=== PATIENT | male | born 1985 | race Caucasian/White ===

== ENCOUNTER 2019-05-11 11:38 | Emergency (ER) | payer SELFPAY ==
[~2019-05-11] VITALS: Ht 188 cm; Wt 137.9 kg
[2019-05-11 11:59] VITALS: BP 150/94; Ht 188 cm; Wt 137.9 kg
[2019-05-12] MEDS ORDERED: CIPRO500 MG PO (12:41)
[2019-05-12] MEDS ORDERED: ZOF4 PO (12:42)
[2019-05-12] MEDS ORDERED: LOMOTIL1 TAB PO (12:42)
[2019-05-12] MEDS ORDERED: LOSARTAN (12:46)
== END 2019-05-11 13:47 | disposition home or self-care (01) ==
LOC: ED 11:38
DX: R10.84 Generalized abdominal pain (principal); R19.7 Diarrhea, unspecified; R11.2 Nausea with vomiting, unspecified
CPT/HCPCS: Q0162

== ENCOUNTER 2019-05-12 09:56 | Inpatient (IN) | payer SELFPAY ==
[~2019-05-12] VITALS: Ht 188 cm; Wt 137.9 kg
[2019-05-12 10:04] VITALS: Ht 188 cm; Wt 137.9 kg
--- NOTE | 2019-05-12 10:19 | NUR ---
PT. IN ED WITH C/O N/V/D X3DAYS. DENIES ABD PAIN OR BLOOD IN EMESIS OR STOOL. DENIES FEVERS. REPORTS HE WAS SEEN YESTERDAY FOR SAME SYMPTOMS AND GIVEN LOMOTIL, ZOFRAN ODT, AND CIPRO. REPORTS SYMPTOMS HAVE CONTINUED. PT. AAOX4, TALKING AND RESPONDING APPROPRIATELY, BREATHING E/U. NAD. DR. STEINER AT BEDSIDE FOR MSE.
[2019-05-12 11:11] LABS: BASOPHIL % 0.2 % (0-2); PLATELET COUNT 274 x10^3mcL (130-400); RED CELL DISTRIBUTION WIDTH 14.2 % (11.5-14.5)
[2019-05-12 11:24] LABS: ALBUMIN 3.6 g/dL (3.4-5.0); BILIRUBIN TOTAL 0.5 mg/dL (0.20-1.00); CARBON DIOXIDE 28.8 mmol/L (21-32); CREATININE SERUM 1.7 mg/dL (0.7-1.3)
[2019-05-12 11:27] LABS: POTASSIUM SERUM 2.9 mmol/L (3.5-5.1); TOTAL PROTEIN, SERUM 9.1 g/dL (6.4-8.2)
--- NOTE | 2019-05-12 12:15 | NUR ---
PT. UP TO RESTROOM. AMBULATES WITH STEADY GAIT. REPROTS HE IS FEELING BETTER AFTER NS BOLUS
[2019-05-12] MEDS ORDERED: CIPRO500 MG PO (12:41)
[2019-05-12] MEDS ORDERED: LOMOTIL1 TAB PO (12:42)
[2019-05-12] MEDS ORDERED: ZOF4 PO (12:42)
[2019-05-12] MEDS ORDERED: LOSARTAN (12:46)
--- NOTE | 2019-05-12 12:46 | NUR ---
MED REC COMPLETED ABLE.
--- NOTE | 2019-05-12 12:57 | NUR ---
PT. LAYING ON GURNEY IN POSITION OF COMFORT. BREATHING E/U. NAD. CALL LIGHT IN REACH. WILL CONTINUE TO MONITOR.
--- NOTE | 2019-05-12 13:00 | NUR ---
PT. AMBULATED TO RESTROOM WITH STEADY GAIT. LEFT STOOL SAMPLE BUT NOT ENOUGH TO SEND TO LAB.
--- NOTE | 2019-05-12 13:04 | NUR ---
REPORT GIVEN TO ROSHNI BELLO FOR FURTHER CARE OF PATIENT. ALL QUESTIONS AND CONCERNS ADDRESSED.
--- NOTE | 2019-05-12 13:05 | NUR ---
PT. TAKEN TO CT VIA DAIN
[2019-05-12 13:32] LABS: CHOLESTEROL/HDL RATIO 8.5
--- NOTE | 2019-05-12 13:45 | NUR ---
PT. TRANSPORTED TO MED SURG DEPARTMENT VIA WHEELCHAIR. PT. AAOX4, TALKING AND RESPONDING APPROPRIATELY, BREATHING E/U. NAD. STABLE AT TIME OF TRANSFER.
--- NOTE | 2019-05-12 13:54 | NUR ---
RECEIVED FROM ER, VIA GUERNEY. AWAKE AND ALERT, ORIENTED TO NAME, PLACE, TIME AND SITUATION. SPEECH CLEAR AND APPROPRIATE. BREATHING EVEN AND UNLABORED ON ROOM AIR. WITH MG IV INFUSING TO RIGHT AC AT 25ML/HR. WITH K 20MEQ INFUSING AT 50ML/HR TO LEFT AC. BOTH IV SITES FLUSHED WELL, FREE FROM ERYTHEMA OR SWELLING. DENIES HAVING ABD PAIN, BUT STATED HAS HAD 6 WATERY STOOL TODAY. INSTRUCTED ON USE OF CALL LIGHT TO CALL FOR ASSISTANCE. PLACED WITHIN EASY REACH.
[2019-05-12 14:03] VITALS: BP 142/84
[2019-05-12 16:32] VITALS: BP 135/80
[2019-05-12 18:29] LABS: UA SPECIFIC GRAVITY 1.015 (1.005-1.035); microscopic required? YES; urine erythrocyte 2+ (NEGATIVE)
[2019-05-12 18:37] LABS: AMPHETAMINE QUAL UR NONE DETECTED (See below)
--- NOTE | 2019-05-12 18:50 | NUR ---
RESTING COMFORTABLY. NO VOMITING SINCE ARRIVING TO MED SURG FLOOR. 1 WATERY STOOL AND URINE SENT TO LAB FOR STUDIES. RECEIVED KRIDER X 2, MAGNESIUM RIDER X 1 AND FIRST DOSE FLAGYL IV. NS INFUSING 125 CC HOUR. NO C/O PAIN VSS. CALL LIGHT WITHIN REACH. POOR APPETITE WITH BRAT DIET.
--- NOTE | 2019-05-12 19:33 | NUR ---
RECEIVED PT FROM DAY SHIFT RN. PT AAOX4. DENIES SEGOVIA/DIZZINESS. BREATHING EVEN AND UNLABORED ON RA. NO SOB NOTED. MED SURG PT DENIES CHEST PAIN/PRESSURE. ABD SOFT/ROUND ACTIVE BOWEL SOUNDS. DENIES ABD PAIN/N/V. PER PT HE HAD WATERY STOOL X4 DURING THE DAY. PT AMBULATORY WITH BRP. IV LAC AND RAC. PATENT AND INFUSING WELL. NO SIGNS OF INFILTRATION. CALL BUTTON WITHIN REACH. SAFETY PRECAUTIONS IN PLACE. WILL CONTINUE TO MONITOR.
[2019-05-12 20:21] VITALS: BP 122/65
--- NOTE | 2019-05-13 01:30 | NUR ---
ROUNDS MADE. PT RESTING BREATHING EVEN AND UNLABORED ON RA WITH NO SOB NOTED. IV PATENT, INFUSING WELL. NO SIGNS OF DISTRESS. CALL BUTTON WITHIN REACH. SAFETY PRECAUTIONS IN PLACE. WILL MONITOR.
[2019-05-13 05:12] VITALS: BP 123/70
[2019-05-13 06:29] LABS: BASOPHIL % 0.2 % (0-2); PLATELET COUNT 227 x10^3mcL (130-400)
[2019-05-13 06:35] LABS: CARBON DIOXIDE 24.1 mmol/L (21-32); CHLORIDE SERUM 101 mmol/L (98-107); CREATININE SERUM 1.2 mg/dL (0.7-1.3); GFR1 > 60 mL/min; GLUCOSE SERUM 89 mg/dL (74-106); PHOSPHOROUS 3.2 mg/dL (2.5-4.9); POTASSIUM SERUM 3.4 mmol/L (3.5-5.1); SODIUM SERUM 135 mmol/L (136-145)
--- NOTE | 2019-05-13 06:49 | NUR ---
PT SLEPT MOST OF THE NIGHT WITH NO SIGNS OF DISTRESS. BREATHING EVEN AND UNLABORED ON RA. IV PATENT INFUSING WELL. PT DID NOT HAVE A BM LAST NIGHT. DENEIS ANY PAIN/DISCOMFORT. MEDICATED PER EMAR. CALL BUTTON WITHIN REACH. SAFETY PRECAUTIONS IN PLACE. WILL CONTINUE TO MONITOR AND ENDORSE CARE TO DAY SHIFT RN.
--- NOTE | 2019-05-13 07:31 | NUR ---
PT IN NO SIGNS OF DISTRESS. ENDORSED CARE TO DAY SHIFT RN, ALL QUESTIONS ADDRESSED.
--- NOTE | 2019-05-13 09:08 | NUR ---
RECEIVED PT FROM IMPORT CLERK. PT AWAKE, ALERT. A/OX4. PT ON ROOM AIR WITH NO RESP DISTRESS NOTED. IV ACCESS LAC/RAC, CDI INFUSING NS AT 125ML/HR. LUNGS CTA. PERIPHERAL PULSES PALPABLE, NO EDEMA NOTED. PT DENIES NAUSEA/VOMITING. PT DENIES ANY PAIN AT THIS TIME. PT REPORTS NO DIARRHEA AT THIS TIME. PT AMBULATORY. SAFETY MEASURES IN PLACE, BED LOW AND LOCKED. CALL LIGHT WITHIN REACH.
[2019-05-13 09:42] VITALS: BP 127/71
--- NOTE | 2019-05-13 13:16 | NUR ---
Discount pharmacy card and list to low cost medical clinics given to patient by Zuleika Joe.
[2019-05-13] MEDS ORDERED: CIPRO250 MG PO (15:37)
[2019-05-13] MEDS ORDERED: FLA500 PO (15:38)
[2019-05-13] MEDS ORDERED: CIPRO500 MG PO (15:52)
[2019-05-13 17:04] VITALS: BP 124/56
[2019-05-13 17:23] VITALS: BP 124/56
--- NOTE | 2019-05-13 17:42 | NUR ---
DISCHARGE INSTRUCTIONS/EDUCATION PROVIDED TO PATIENT. PT TO FOLLOW UP WITH PCP. IV ACCESS REMOVED WITH CATHETER INTACT, NO REDNESS, SWELLING OR BLEEDING NOTED. PT TO BE TAKEN BY WHEELCHAIR TO [facility] FOR DISCHARGE. SAFETY MAINTAINED.
== END 2019-05-13 17:49 | disposition home or self-care (01) | DRG 438 ==
LOC: ED 09:56 → MU 12:20
PROVIDERS: Specialist; ADMIT General Practice
DX: K85.90 Acute pancreatitis without necrosis or infection, unspecified (principal); N17.0 Acute kidney failure with tubular necrosis; E87.1 Hypo-osmolality and hyponatremia; K52.9 Noninfective gastroenteritis and colitis, unspecified; I10 Essential (primary) hypertension; E86.0 Dehydration; E87.6 Hypokalemia; Z83.3 Family history of diabetes mellitus; Z82.49 Family history of ischemic heart disease and other diseases of the circulatory system
CPT/HCPCS: 87046; 87046-59; G0378; J0744; J2405; J3475; J3480; J3490; J7030; J7040; Q0092